=== PATIENT | female | born 1955 | race Caucasian/White ===

== ENCOUNTER 2017-09-14 11:47 | Emergency (ER) | payer BC ==
--- NOTE | 2017-09-14 13:56 | UC ---
Respiratory Complaint HPI - History of Current Complaint Chief Complaint: UCRespiratory Stated Complaint: cough Time Seen by Provider: 09/14/17 13:29 Hx Obtained From: Patient Onset/Duration: Gradual Onset - states siuck for 6 weeks with URI, saw PCP 2-3 weeks ago and rx'd only kamila segura feels she is getting no better and last nigh coughing so hard her ribs hurt Timing: Intermittent Episodes Severity Initially: Mild Severity Currently: Moderate Character: Cough: Productive Aggravating Factors: Exertion, Deep Breaths, Recumbent Position Alleviating Factors: Nothing - tried guiafenesin Associated Signs And Symptoms: Positive: URI, Nasal Congestion. Negative: Fever , Chills, Hemoptysis - Allergies/Home Medications Allergies/Adverse Reactions: Allergies Allergy/AdvReac Type Severity Reaction Status Date / Time No Known Allergies Allergy Verified 09/14/17 12:11 Home Medications: Home Medications traZODone TAB* [Desyrel TAB*] 50 mg PO DAILY 09/14/17 [History Confirmed ] PMH/Surg Hx/FS Hx/Imm Hx Previously Healthy: Yes - RA - Surgical History Surgical History: Yes Surgery Procedure, Year, and Place: 1956 TONSILLECTOMY [place] 1966 BENIGN CYST UNDER TONGUE [facility]. LEFT CARPAL TUNNEL RELEASE, [facility] - Family History Known Family History: Positive: None - Social History Occupation: Employed Full-time Lives: With Family Alcohol Use: Rare Alcohol Amount: MAYBE 1/MONTH Substance Use Type: None Smoking Status (MU): Former Smoker Type: Cigarettes Amount Used/How Often: 1PPD 35 YRS Have You Smoked in the Last Year: No When Did the Patient Quit Smoking/Using Tobacco: 2006 Review of Systems Constitutional: Fatigue ENT: Sinus Congestion Respiratory: Cough Cardiovascular: Negative Gastrointestinal: Negative Neurological: Negative Psychological: Negative All Other Systems Reviewed And Are Negative: Yes Physical Exam Triage Information Reviewed: Yes Appearance: Well-Appearing, No Pain Distress, Well-Nourished Vital Signs: Initial Vital Signs Temp 98.3 F 09/14/17 12:13 Pulse 70 09/14/17 12:13 Resp 15 09/14/17 12:13 BP 148/52 09/14/17 12:13 Pulse Ox 100 09/14/17 12:13 Vital Signs Reviewed: Yes Eyes: Positive: Conjunctiva Clear ENT: Positive: Pharynx normal, Nasal congestion Neck: Positive: Supple, Nontender, No Lymphadenopathy Respiratory: Positive: No respiratory distress, Crackles - Upper L lung field Cardiovascular Exam: Normal Cardiovascular: Positive: RRR Neurological Exam: Normal Neurological: Positive: Alert Psychological Exam: Normal Skin Exam: Normal UC Diagnostic Evaluation - Laboratory O2 Sat by Pulse Oximetry: 100 Respiratory Course/Dx - Differential Dx/Diagnosis Differential Diagnosis/HQI/PQRI: Bronchitis, Influenza, Lower Resp Infection, Sinusitis Provider Diagnoses: acute bronchitis Discharge - Discharge Plan Condition: Stable Disposition: HOME Prescriptions: Ciprofloxacin TAB* [Cipro 500 MG TAB*] 500 mg PO BID #20 tab Patient Education Materials: Acute Bronchitis (ED) Referrals: Opal Culver MD [Primary Care Provider] - 2 Days (if no better) Additional Instructions: Drink plenty of fluids take antibiotic as ordered report to ER if symptoms worsen at any time
[2017-09-14 13:59] VITALS: BP 154/55
== END 2017-09-14 14:09 | disposition home or self-care (01) ==
LOC: UCEAST 11:47
DX: J20.9 Acute bronchitis, unspecified (principal); Z87.891 Personal history of nicotine dependence
CPT/HCPCS: 99212; G0463